=== PATIENT | male | born 1990 | race Two or more races ===

== ENCOUNTER 2025-06-22 23:42 | Emergency (ER) | payer MEDICAID ==
[~2025-06-22] VITALS: Ht 177.8 cm; Wt 70.0 kg
[2025-06-22 23:45] VITALS: BP 114/84; PULSE 92; RESP 16; TEMP 37.1; O2SAT 99
[2025-06-23] MEDS ORDERED: TETANUS, DIPHTHERIA, PERTUSSIS VAC/PF 0.5ML (>10YR OLD) IM ONE (00:15)
[2025-06-23] MEDS ORDERED: LIDOCAINE HCL 1% 20ML VIAL INFIL ONE (00:15)
[2025-06-23] MEDS ORDERED: ACETAMINOPHEN 325MG TABLET PO ONE (00:15)
== END 2025-06-23 00:45 | disposition left against medical advice (07) ==
LOC: ER 23:42
DX: S01.81XA Laceration without foreign body of other part of head, initial encounter (principal); I10 Essential (primary) hypertension; W01.0XXA Fall on same level from slipping, tripping and stumbling without subsequent striking against object, initial encounter; Y93.89 Activity, other specified; Y92.89 Other specified places as the place of occurrence of the external cause; Y99.8 Other external cause status
CPT/HCPCS: 99283